=== PATIENT | male | born 1970 | race Caucasian/White ===

== ENCOUNTER 2017-09-24 14:03 | Emergency (ER) | payer BC, OTHER ==
[~2017-09-24] VITALS: Ht 172.7 cm; Wt 86.2 kg
--- NOTE | ~2017-09-24 | EKG ---
[place], [place] ELECTROCARDIOGRAM REPORT NAME: CLEM SEGURA UNIT #: [id number] ROOM: DOCTOR: TOM JOHNS MD BIRTHDATE: [birth year] DOS: 09/24/2017 TIME: 1457 hours. Normal sinus rhythm, ____ beats per minute. Mildly prolonged QRS interval. Poor R-wave progression is present. An abnormal ECG. No previous tracing is available for comparison. TOM JOHNS MD CM:EKGRPT:ELECTROCARDIOGRAM REPORT [id number] TOM JOHNS MD
[~2017-09-24 14:03] MED LIST: ASPIR-LOW81 MG PO; CARDIZEM30 MG PO; FISH OIL; LIDEX0.05% T; PERCOCET 325 MG1 TA2 PO; PREDNICOT20 MG PO; ZOCOR40 MG PO; ZOFRAN ODT4 MG SL
[2017-09-24 14:59] LABS: BASO % 0.3 % (0.0-1.0); EOS % 0.1 % (1.0-4.0); HEMATOCRIT 52.4 % (42.0-52.0); HEMOGLOBIN 17.9 g/dl (14.0-18.0); LYMPH # 1.8 10*3/uL (1.3-4.4); LYMPH % 20.4 % (27.0-41.0); MEAN CELL VOLUME 86.5 fl (80.0-94.0); MEAN CORPUSCULAR HGB 29.5 pg (27.0-31.0); MEAN CORPUSCULAR HGB CONC 34.2 g/dl (33.0-37.0); MEAN PLATELET VOLUME 10.2 fl (9.6-12.3); MONO # 0.5 10*3/uL (0.1-1.0); MONO % 5.9 % (3.0-9.0); NEUT # 6.5 10*3/uL (2.3-7.9); PLATELET COUNT AUTOMATED 250 10*3/uL (130-400); RED BLOOD COUNT 6.06 10*6/uL (4.50-5.90); WHITE BLOOD COUNT 8.9 10*3/uL (4.8-10.8)
[2017-09-24 15:10] LABS: ACT PARTIAL THROMBO TIME 25.5 SECONDS (20.8-31.5)
[2017-09-24 15:16] LABS: ALBUMIN 3.9 gm/dl (3.1-4.5); ALKALINE PHOSPHATASE 93 U/L (45-117); BUN 12 mg/dl (7-24); CHLORIDE 103 mmol/L (98-107); CREATININE 0.98 mg/dL (0.70-1.30); POTASSIUM 3.7 mmol/L (3.5-5.1); SGOT/AST 40 IU/L (3-35); SGPT/ALT 99 U/L (12-78); SODIUM 138 mmol/L (136-145); TOTAL PROTEIN 7.8 gm/dL (6.4-8.2)
[2017-09-24 15:22] LABS: TROPONIN I < 0.015 ng/ml (<0.045)
[2017-09-24] MEDS ORDERED: NEXIUM40 MG PO (18:52)
== END 2017-09-24 19:10 | disposition home or self-care (01) ==
LOC: ED 14:03
PROVIDERS: Emergency Medicine
DX: K21.9 Gastro-esophageal reflux disease without esophagitis (principal); I48.91 Unspecified atrial fibrillation; I10 Essential (primary) hypertension; E78.5 Hyperlipidemia, unspecified; Z79.899 Other long term (current) drug therapy; Z79.82 Long term (current) use of aspirin

== ENCOUNTER → 2017-10-05 | Outpatient (CLI) | payer BC, OTHER ==
[~2017-10-05] MED LIST changes: +NEXIUM40 MG PO
--- NOTE | ~2017-10-05 | ST ---
[place], [place] EXERCISE STRESS TEST REPORT NAME: CLE[facility] SEGURA [id number] UNIT #: [id number] ROOM: DOCTOR: KIRIT BARAKAT MD BIRTHDATE: [birth year] DOS: 10/05/2017 EXERCISE TREADMILL NUCLEAR STRESS TEST REFERRING PHYSICIAN: ____. The patient underwent a standard Renato protocol exercise treadmill stress testing accompanying nuclear perfusion imaging. The patient's baseline EKG showed normal sinus rhythm, nonspecific ST-T wave changes with a heart rate of 62 with a blood pressure of 112/82. The patient exercised for 10 minutes 30 seconds, reaching a peak heart rate of 157, all of which represents 90% of maximum predicted. The patient's maximum heart rate was 162/80. The patient had no chest pain, no arrhythmias. The patient's Abarca Treadmill score was 10.5. The patient's peak metabolic level of activity was 12.5. SUMMARY OF FINDINGS: 1. Negative treadmill stress test for ischemic changes. 2. Good work level. 3. Abarca treadmill score of 10.5 portending low risk prognosis. 4. Chest pain was noted. 5. Please see separate report for perfusion scan imaging report. KIRIT BARAKAT MD CM:STRESS:EXERCISE STRESS TEST REPORT [id number] KIRIT BARAKAT MD
== END | disposition home or self-care (01) ==
LOC: CARD 03:18
DX: R07.9 Chest pain, unspecified (principal)

== ENCOUNTER → 2022-12-11 | Outpatient (CLI) | payer OTHER ==
[2022-12-11 07:57] LABS: BASO # 0.1 10*3/uL (0.0-0.1); BASO % 0.7 % (0.0-1.0); EOS # 0.1 10*3/uL (0.0-0.4); EOS % 1.4 % (1.0-4.0); HEMATOCRIT 52.5 % (42.0-52.0); LYMPH # 2.5 10*3/uL (1.3-4.4); MEAN CELL VOLUME 88.5 fl (80.0-94.0); MEAN CORPUSCULAR HGB 30.4 pg (27.0-31.0); MEAN CORPUSCULAR HGB CONC 34.3 g/dl (33.0-37.0); MEAN PLATELET VOLUME 10.1 fl (9.6-12.3); MONO # 0.5 10*3/uL (0.1-1.0); MONO % 6.5 % (3.0-9.0); NEUT % 56.1 % (47.0-73.0); PLATELET COUNT AUTOMATED 274 10*3/uL (130-400); RED BLOOD COUNT 5.93 10*6/uL (4.50-5.90); RED CELL DISTRI WIDTH 13.9 % (0-14.5); WHITE BLOOD COUNT 7.2 10*3/uL (4.8-10.8)
[2022-12-11 08:30] LABS: CHOLESTEROL 229 mg/dL (<200); LDL CHOLESTEROL 157 mg/dL (9-159); SGPT/ALT 42 U/L (10-49); TRIGLYCERIDES 92 mg/dl (<150)
== END | disposition home or self-care (01) ==
LOC: LAB 07:35
PROVIDERS: ATTEND Internal Medicine Cardiovascular Disease
DX: I48.0 Paroxysmal atrial fibrillation (principal); E78.2 Mixed hyperlipidemia; Z82.49 Family history of ischemic heart disease and other diseases of the circulatory system

== ENCOUNTER 2024-08-08 20:34 | Inpatient (IN) | payer OTHER ==
[~2024-08-08] VITALS: Ht 172.7 cm; Wt 87.7 kg
[2024-08-08 20:52] LABS: BASO # 0.1 10*3/uL (0.0-0.1); BASO % 0.6 % (0.0-1.0); EOS # 0.1 10*3/uL (0.0-0.4); HEMATOCRIT 48.6 % (42.0-52.0); MEAN CELL VOLUME 88.4 fl (80.0-94.0); MEAN PLATELET VOLUME 10.2 fl (9.6-12.3); MONO # 0.7 10*3/uL (0.1-1.0); MONO % 6.8 % (3.0-9.0); NEUT # 5.3 10*3/uL (2.3-7.9); NEUT % 55.5 % (47.0-73.0); PLATELET COUNT AUTOMATED 256 10*3/uL (130-400); RED CELL DISTRI WIDTH 13.5 % (0-14.5); WHITE BLOOD COUNT 9.6 10*3/uL (4.8-10.8)
[2024-08-08 20:54] VITALS: BP 148/84
[2024-08-08 21:15] LABS: ALKALINE PHOSPHATASE 71 U/L (46-116); BUN 17 mg/dl (9-23); CHLORIDE 104 mmol/L (98-107); POTASSIUM 3.5 mmol/L (3.4-5.1); SGPT/ALT 28 U/L (5-49); TOTAL PROTEIN 7.2 gm/dL (6.0-8.0)
[2024-08-08] MEDS ORDERED: HEPARIN SODIUM 250 ML IV SCH (23:00)
[2024-08-08 23:18] LABS: ACT PARTIAL THROMBO TIME 28.5 SECONDS (20.0-32.1)
[2024-08-08] MEDS ORDERED: Ondansetron Hydrochloride 4 MG/2 ML VIAL IV ONE (23:25)
[2024-08-08] MEDS ORDERED: MORPHINE Sulfate 2 MG/ML SYR IV ONE (23:25)
[2024-08-08] MEDS ORDERED: MORPHINE Sulfate 2 MG/ML SYR IV PRN (23:30)
[2024-08-08] MEDS ORDERED: Ondansetron Hydrochloride 4 MG/2 ML VIAL IV PRN (23:30)
[2024-08-09 01:24] VITALS: BP 122/67
[2024-08-09 04:37] LABS: BASO # 0.1 10*3/uL (0.0-0.1); BASO % 0.5 % (0.0-1.0); EOS # 0.1 10*3/uL (0.0-0.4); EOS % 0.5 % (1.0-4.0); HEMATOCRIT 47.3 % (42.0-52.0); MEAN CELL VOLUME 86.9 fl (80.0-94.0); MEAN CORPUSCULAR HGB CONC 34.5 g/dl (33.0-37.0); MEAN PLATELET VOLUME 10.5 fl (9.6-12.3); MONO # 0.6 10*3/uL (0.1-1.0); MONO % 6.7 % (3.0-9.0); NEUT # 6.1 10*3/uL (2.3-7.9); NEUT % 64.1 % (47.0-73.0); PLATELET COUNT AUTOMATED 237 10*3/uL (130-400); RED BLOOD COUNT 5.44 10*6/uL (4.50-5.90); RED CELL DISTRI WIDTH 13.9 % (0-14.5); WHITE BLOOD COUNT 9.6 10*3/uL (4.8-10.8)
[2024-08-09 04:49] VITALS: BP 120/60
[2024-08-09 05:04] LABS: BUN 14 mg/dl (9-23); CHLORIDE 106 mmol/L (98-107); CHOLESTEROL 169 mg/dL (<200); FREE T4 1.21 ng/dl (0.89-1.76); LDL CHOLESTEROL 106 mg/dL (9-159); POTASSIUM 3.7 mmol/L (3.4-5.1); TRIGLYCERIDES 92 mg/dl (<150)
[2024-08-09 05:10] LABS: VITAMIN D, 25-HYDROXY 50.7 ng/mL (30-100)
[2024-08-09 07:42] VITALS: BP 105/59
[2024-08-09] MEDS ORDERED: ASPIRIN ENTERIC COATED 81 MG TAB PO SCH (10:00)
[2024-08-09] MEDS ORDERED: DILTIAZEM HYDROCHLORIDE 30 MG PO SCH (10:00)
[2024-08-09] MEDS ORDERED: ATORVASTATIN CALCIUM 40 MG TABLET PO SCH (10:00)
[2024-08-09] MEDS ORDERED: dilTIAZem CD 180 MG CAP PO SCH (10:00)
[2024-08-09 11:09] VITALS: BP 131/59
[2024-08-09 14:32] VITALS: BP 117/69
[2024-08-10] MEDS ORDERED: METOPROLOL SUCCINATE XR 25 MG TAB PO SCH (10:00)
== END 2024-08-09 15:45 | disposition short-term general hospital (02) | DRG 282 ==
LOC: ED 20:34 → EDHOLD 23:25
PROVIDERS: Internal Medicine; Student in an Organized Health Care Education/Training Program; ADMIT Family Medicine; ATTEND Family Medicine
DX: I21.4 Non-ST elevation (NSTEMI) myocardial infarction (principal); K21.9 Gastro-esophageal reflux disease without esophagitis; I48.0 Paroxysmal atrial fibrillation; E78.2 Mixed hyperlipidemia; F17.200 Nicotine dependence, unspecified, uncomplicated; I10 Essential (primary) hypertension; G43.909 Migraine, unspecified, not intractable, without status migrainosus; M51.369 Other intervertebral disc degeneration, lumbar region without mention of lumbar back pain or lower extremity pain; Z79.82 Long term (current) use of aspirin; Z79.899 Other long term (current) drug therapy; Z71.6 Tobacco abuse counseling

== ENCOUNTER → 2024-09-30 | Outpatient (CLI) | payer OTHER ==
[2024-09-30 08:37] LABS: CPK 154 U/L (34-171); LDL CHOLESTEROL 76 mg/dL (9-159); SGPT/ALT 54 U/L (5-49)
== END | disposition home or self-care (01) ==
LOC: LAB 07:42
PROVIDERS: ATTEND Internal Medicine Cardiovascular Disease
DX: I10 Essential (primary) hypertension (principal); E78.2 Mixed hyperlipidemia; I21.4 Non-ST elevation (NSTEMI) myocardial infarction; Z95.5 Presence of coronary angioplasty implant and graft